=== PATIENT | female | born 1970 | race Caucasian/White ===

== ENCOUNTER 2019-01-31 11:24 | Emergency (ER) | payer OTHER ==
[~2019-01-31] VITALS: Ht 160 cm; Wt 76.8 kg
== END 2019-01-31 13:42 | disposition home or self-care (01) ==
LOC: ED 11:24
PROC: 0XQFXZZ Repair Left Lower Arm, External Approach (ICD-10-PCS; principal; 2019-01-31)
DX: S51.812A Laceration without foreign body of left forearm, initial encounter (principal); F17.200 Nicotine dependence, unspecified, uncomplicated; Z23 Encounter for immunization; W26.0XXA Contact with knife, initial encounter; Y93.E3 Activity, vacuuming
CPT/HCPCS: 12002; 90471; 90715; 99282-25